=== PATIENT | female | born 1960 | race Caucasian/White ===

== ENCOUNTER 2019-04-10 08:57 | Emergency (ER) | payer MEDICARE ==
[~2019-04-10] VITALS: Ht 157.5 cm; Wt 47.7 kg
[2019-04-10 08:59] VITALS: Ht 157.5 cm; Wt 47.7 kg
[2019-04-10] MEDS ORDERED: AUBAGIO14 MG PO (09:01)
[2019-04-10] MEDS ORDERED: TYLENOL W/CODEI1 TAB PO (09:02)
[2019-04-10] MEDS ORDERED: FLOMAX0.4 MG PO (09:02)
[2019-04-10] MEDS ORDERED: TRAZODONE HCL150 MG PO (09:03)
[2019-04-10] MEDS ORDERED: ZOFRAN4 MG PO (09:03)
[2019-04-10] MEDS ORDERED: ZOLOFT25 MG PO (09:03)
[2019-04-10] MEDS ORDERED: BACLOFEN20 M1 PO (09:04)
[2019-04-10] MEDS ORDERED: ULTRAM50 MG PO (10:13)
[2019-04-10 11:15] VITALS: BP 146/87
== END 2019-04-10 11:15 | disposition home or self-care (01) ==
LOC: D.ER 08:57
DX: S89.91XA Unspecified injury of right lower leg, initial encounter (principal); X50.9XXA Other and unspecified overexertion or strenuous movements or postures, initial encounter; Y93.89 Activity, other specified; Y92.019 Unspecified place in single-family (private) house as the place of occurrence of the external cause; S00.93XA Contusion of unspecified part of head, initial encounter

== ENCOUNTER 2019-04-15 23:56 | Emergency (ER) | payer MEDICARE ==
[~2019-04-15 23:56] MED LIST: AUBAGIO14 MG PO; BACLOFEN20 M1 PO; FLOMAX0.4 MG PO; TRAZODONE HCL150 MG PO; TYLENOL W/CODEI1 TAB PO; ULTRAM50 MG PO; ZOFRAN4 MG PO; ZOLOFT25 MG PO
[2019-04-15 23:58] VITALS: BMI 19.2
[2019-04-16] MEDS ORDERED: TYLENOL W/CODEI1 TAB PO (01:18)
[2019-04-16 02:27] VITALS: BP 149/99
== END 2019-04-16 02:25 | disposition home or self-care (01) ==
LOC: D.ER 23:56
DX: S83.91XA Sprain of unspecified site of right knee, initial encounter (principal); X50.1XXA Overexertion from prolonged static or awkward postures, initial encounter; Y93.89 Activity, other specified; Y92.89 Other specified places as the place of occurrence of the external cause

== ENCOUNTER 2019-05-04 04:39 | Emergency (ER) | payer MEDICARE ==
[~2019-05-04] VITALS: Ht 157.5 cm; Wt 47.7 kg
[2019-05-04 04:40] VITALS: Ht 157.5 cm; Wt 47.7 kg
[2019-05-04] MEDS ORDERED: CYCLOBENZAPRINE10 MG PO (04:42)
[2019-05-04] MEDS ORDERED: LEVOXYL75 MCG PO (04:43)
[2019-05-04] MEDS ORDERED: AUGMENTIN 875-11 TAB PO (06:09)
[2019-05-04] MEDS ORDERED: TYLENOL W/CODEI1 TAB PO (06:25)
[2019-05-04 06:31] VITALS: BP 166/95
== END 2019-05-04 06:31 | disposition home or self-care (01) ==
LOC: D.ER 04:39
DX: S90.32XA Contusion of left foot, initial encounter (principal); X58.XXXA Exposure to other specified factors, initial encounter; Y93.89 Activity, other specified; Y92.89 Other specified places as the place of occurrence of the external cause

== ENCOUNTER 2020-02-14 22:07 | Emergency (ER) | payer MEDICARE ==
[~2020-02-14] VITALS: Ht 157.5 cm; Wt 51.4 kg
[~2020-02-14 22:07] MED LIST changes: +AUGMENTIN 875-11 TAB PO; +CYCLOBENZAPRINE10 MG PO; +GABAPENTIN100 MG PO; +IBUPROFEN800 MG PO; +LEVOXYL75 MCG PO; +LOMOTIL 2.5-0.1 EAC1 PO; +NORVASC5 MG PO; +OMNICEF300 MG PO; +VITAMIN D10000 UNI1 PO
[2020-02-14 22:11] VITALS: Ht 157.5 cm; Wt 51.4 kg
[2020-02-14] MEDS ORDERED: ZOFRAN ODT4 MG/UDTAB PO (22:57)
[2020-02-14] MEDS ORDERED: LOMOTIL 2.5-0.1 EAC1 PO (22:57)
[2020-02-15 00:57] VITALS: BP 140/71
== END 2020-02-15 01:14 | disposition home or self-care (01) ==
LOC: D.ER 22:07
DX: K52.9 Noninfective gastroenteritis and colitis, unspecified (principal); I10 Essential (primary) hypertension; E03.9 Hypothyroidism, unspecified; G35 Multiple sclerosis

== ENCOUNTER 2020-02-16 17:10 | Inpatient (IN) | payer MEDICARE ==
[~2020-02-16] VITALS: Ht 157.5 cm; Wt 51.3 kg
[~2020-02-16 17:10] MED LIST changes: +ZOFRAN ODT4 MG/UDTAB PO
[2020-02-16 17:43] LABS: BASOPHILS 0.2 % (0-2); EOSINOPHILS 1.7 % (0-7); HEMATOCRIT 40.8 % (36.0-48.0); HEMOGLOBIN 12.7 g/dL (12-16); IMMATURE GRANULOCYTES 0.2 % (0-5); LYMPHOCYTES 9.5 % (15-50); MCH 28.4 pg (26.0-34.0); MCHC 31.1 g/dL (31.0-37.0); MCV 91.3 fL (80.0-100.0); MEAN PLATELET VOLUME 9.2 fL (7.4-10.4); MONOCYTES 11.9 % (2-11); NEUTROPHILS 76.5 % (40-80); PLATELET COUNT 384 10x3/uL (130-400); RBC 4.47 10x6/uL (4.00-5.40); WBC 8.4 10x3/uL (4.8-10.8)
[2020-02-16 17:58] LABS: CALC OSMOLALITY 284 mosm/kg (275-300); CALCIUM 9.4 mg/dL (8.5-10.1); CARBON DIOXIDE 25.4 mmol/L (21.0-32.0); CHLORIDE - SERUM 101 mmol/L (98-107); CREATININE - SERUM 1.5 mg/dL (0.6-1.3); GLUCOSE 136 mg/dL (74-106); SODIUM 138 mmol/L (136-145); UREA NITROGEN 33 mg/dL (7-18); eGFR NON AFRICAN AMERICAN 38 mL/min (90-120)
[2020-02-16 18:06] LABS: ALBUMIN 3.1 g/dL (3.4-5.0); ALKALINE PHOSPHATASE 125 U/L (30-120); ALT (SGPT) 18 U/L (10-68); AMYLASE - SERUM 23 U/L (25-115); BILIRUBIN - TOTAL 0.33 mg/dL (0.2-1.3); LIPASE 131 U/L (73-393); PROTEIN - SERUM 7.8 g/dL (6.4-8.2)
[2020-02-16 18:10] LABS: TROPONIN-I < 0.017 ng/mL (0.000-0.060)
[2020-02-16 19:35] LABS: BILIRUBIN NEGATIVE (NEGATIVE); GLUCOSE NEGATIVE (NEGATIVE); KETONE NEGATIVE (NEGATIVE); NITRITE NEGATIVE (NEGATIVE); UROBILINOGEN NORMAL (NORMAL)
[2020-02-16 19:39] LABS: WHITE CELLS - URINE 25-50 /hpf (NEGATIVE)
[2020-02-16 19:40] LABS: BACTERIA MANY /hpf (NEGATIVE); EPITHELIAL CELLS 0-5 /hpf (0-5)
--- NOTE | 2020-02-16 20:14 | NUR ---
PT ARRIVED TO FLOOR VIA STRETCHER, TOTAL ASSIST TRANSFER TO BED. PT DENIES ANY PAIN AT THIS TIME. DOZIER CATH PLACED IN ER, CLAMPED. URINE NOTED TO BE DARK AND BLOODY. ER NURSE STATED THE DOCTORS ARE AWARE OF THIS. DOZIER WAS CLAMPED IN ER DUE TO OUTPUT OF 1000 ML WHEN DOZIER WAS INSERTED. CL IN REACH, BED IN LOWEST POSITION.
--- NOTE | 2020-02-16 21:30 | NUR ---
PT DOZIER CATH UNCLAMPED. CLOTS VISIBLE IN TUBE, AND NOT DRAINING. MARIE LAI APN PAGED AT THIS TIME.
--- NOTE | 2020-02-16 22:00 | NUR ---
MARIE LAI APN AT BEDSIDE WITH THIS NURSE. INSPECTION OF DOZIER CATH DONE AT THIS TIME. BLADDER SCAN DONE WITH 160 ML. DOZIER CATH WAS FLUSHED WITH 120 ML OF STERILE WATER. STILL HAVING DIFFICULTY GETTING CATH TO DRAIN. DOZIER BAG EMPTIED AND NO VISIBLE CLOTS NOTED IN TUBE. PER MARIE LAI APN THIS NURSE WITH RECHECK OUTPUT IN ONE HOUR AND NOTIFY MARIE LAI APN IF ANY CLOTS ARE NOTED AND WHAT THE OUTPUT IS. CL IN REACH, BED IN LOWEST POSITION.
[2020-02-17] VITALS: BP 159/77
--- NOTE | 2020-02-17 | NUR ---
PT OUTPUT 350ML, MARIE LAI APN NOTIFIED.
[2020-02-17 02:15] VITALS: BMI 20.7
[2020-02-17 04:00] VITALS: BP 103/51
--- NOTE | 2020-02-17 04:32 | NUR ---
PT C/O PAIN IN LEFT HIP DUE TO ONLY BEING COMFORTABLE LAYING ON HER LEFT SIDE. THIS NURSE APPLIED A PADDED MEPILEX TO LEFT HIP. NO SIGNS OF REDDNESS OR BREAK DOWN NOTED AT THIS TIME. CL IN REACH, BED IN LOWEST POSITION.
[2020-02-17 05:06] LABS: BASOPHILS 0.3 % (0-2); EOSINOPHILS 2.8 % (0-7); HEMATOCRIT 38.3 % (36.0-48.0); HEMOGLOBIN 11.8 g/dL (12-16); IMMATURE GRANULOCYTES 0.4 % (0-5); LYMPHOCYTES 14.1 % (15-50); MCHC 30.8 g/dL (31.0-37.0); MEAN PLATELET VOLUME 9.5 fL (7.4-10.4); MONOCYTES 13.3 % (2-11); NEUTROPHILS 69.1 % (40-80); PLATELET COUNT 423 10x3/uL (130-400); RBC 4.21 10x6/uL (4.00-5.40); RDW 14.1 % (11.5-14.5); WBC 7.5 10x3/uL (4.8-10.8)
[2020-02-17 05:36] LABS: APTT 45.1 SECONDS (22.8-39.4); INR 1.08 (0.85-1.17)
[2020-02-17 05:49] LABS: ALBUMIN 2.8 g/dL (3.4-5.0); ALKALINE PHOSPHATASE 112 U/L (30-120); BILIRUBIN - TOTAL 0.24 mg/dL (0.2-1.3); CALCIUM 8.9 mg/dL (8.5-10.1); CARBON DIOXIDE 24.6 mmol/L (21.0-32.0); CHLORIDE - SERUM 104 mmol/L (98-107); MAGNESIUM - SERUM 1.6 mg/dL (1.8-2.4); PHOSPHOROUS 2.3 mg/dL (2.5-4.9); SODIUM 139 mmol/L (136-145); THYROID STIMULATING HORMONE 6.99 uIU/mL (0.36-3.74)
[2020-02-17 05:50] LABS: ALT (SGPT) 13 U/L (10-68); CALC OSMOLALITY 278 mosm/kg (275-300); CREATININE - SERUM 0.7 mg/dL (0.6-1.3); GLUCOSE 84 mg/dL (74-106); POTASSIUM - SERUM 3.5 mmol/L (3.5-5.1); UREA NITROGEN 18 mg/dL (7-18); eGFR NON AFRICAN AMERICAN > 90 mL/min (90-120)
--- NOTE | 2020-02-17 07:04 | NUR ---
DOZIER OUTPUT TOTAL OF 1700 ML.
--- NOTE | 2020-02-17 07:26 | NUR ---
PT RESTING IN BED ALERT AND ORIENTED X4. DOZIER PATENT AT THIS TIME. PT DENIES ANY PAIN OR FURTHER NEEDS. NO S/S OF DISTRESS AT THIS TIME. BED LOW CALL LIGHT WITHIN REACH WILL CONTINUE TO MONITOR.
[2020-02-17 08:10] VITALS: BP 134/69
[2020-02-17 12:51] VITALS: Ht 157.5 cm; Wt 51.3 kg
[2020-02-17 14:01] VITALS: BP 98/73
--- NOTE | 2020-02-17 16:23 | NUR ---
RESTS IN BED WITH CALL LIGHT IN REACH. IV PATENT. WILL MONITOR NEEDS.
[2020-02-17 16:51] VITALS: BP 123/65
[2020-02-17 18:33] LABS: UDS - AMPHET NEGATIVE QUAL (NEGATIVE); UDS - BARB NEGATIVE QUAL (NEGATIVE); UDS - BENZO NEGATIVE QUAL (NEGATIVE); UDS - COCAINE NEGATIVE QUAL (NEGATIVE); UDS - OPIATE POSITIVE QUAL (NEGATIVE); UDS - PCP NEGATIVE QUAL (NEGATIVE); UDS - THC NEGATIVE QUAL (NEGATIVE)
--- NOTE | 2020-02-17 19:00 | NUR ---
REPORT RECEIVED, WILL CONTINUE POC. PATIENT IS AAOX4, LYING IN SEMI-FOWLERS POSITION. NO S/S OF DISTRESS OBSERVED, RR EVEN AND UNLABORED ON ROOM AIR. PIV TO RT AC INFUSING NS @ 75ML/HR. F/C DRAINING PINK TINGED URINE BY GRAVITY TO RT SIDE OF BED. PATIENT DENIES NEEDS AT THIS TIME. CL IN REACH, BED LOCKED AND LOWERED. WILL CTM.
[2020-02-17 20:00] VITALS: BP 120/81
--- NOTE | 2020-02-17 20:56 | NUR ---
ADMINISTERED HS MEDS, FSBS 85 NO INSULIN NEEDED. EMPTIED 400CC DARK RED URINE FROM DOZIER CATHETER.
--- NOTE | 2020-02-17 22:11 | NUR ---
PATIENT NEEDED ASSISTANCE BEING REPOSITIONED. REPOSITIONED PATIENT AND NOTICED SHE HAD A BM. ARTIFICIAL BREEDING DISTRIBUTOR AT BEDSIDE TO HELP CLEAN UP.
--- NOTE | 2020-02-17 23:13 | NUR ---
PT C/O PAIN IN LEGS AND RT KNEE. ADMINISTERED PRN ZOFRAN AND MORPHINE PER ORDER. WILL CTM.
[2020-02-18] VITALS: BP 143/64
--- NOTE | 2020-02-18 01:00 | NUR ---
EMPTIED 125CC NIMCO COLORED URINE FROM F/C. REPOSITIONED PATIENT. PATIENT DENIES FURTHER NEEDS AT THIS TIME. CL IN REACH, BED LOCKED AND LOWERED. WILL CTM.
--- NOTE | 2020-02-18 02:56 | NUR ---
I have reviewed this patient and I concur with the Shift Assessment completed by the Licensed Practical Nurse today this shift.
[2020-02-18 04:00] VITALS: BP 141/68
[2020-02-18 04:34] LABS: BASOPHILS 0.3 % (0-2); EOSINOPHILS 5.2 % (0-7); HEMATOCRIT 32.8 % (36.0-48.0); HEMOGLOBIN 9.9 g/dL (12-16); IMMATURE GRANULOCYTES 0.3 % (0-5); LYMPHOCYTES 22.3 % (15-50); MCH 27.7 pg (26.0-34.0); MCHC 30.2 g/dL (31.0-37.0); MCV 91.6 fL (80.0-100.0); MEAN PLATELET VOLUME 9.5 fL (7.4-10.4); MONOCYTES 12.6 % (2-11); NEUTROPHILS 59.3 % (40-80); PLATELET COUNT 362 10x3/uL (130-400); RBC 3.58 10x6/uL (4.00-5.40); WBC 6.5 10x3/uL (4.8-10.8)
[2020-02-18 05:08] LABS: CALCIUM 7.7 mg/dL (8.5-10.1); CARBON DIOXIDE 25.1 mmol/L (21.0-32.0); CHLORIDE - SERUM 108 mmol/L (98-107); CREATININE - SERUM 0.6 mg/dL (0.6-1.3); GLUCOSE 88 mg/dL (74-106); SODIUM 142 mmol/L (136-145); eGFR NON AFRICAN AMERICAN > 90 mL/min (90-120)
[2020-02-18 05:10] LABS: CALC OSMOLALITY 279 mosm/kg (275-300); POTASSIUM - SERUM 2.9 mmol/L (3.5-5.1); UREA NITROGEN 8 mg/dL (7-18)
--- NOTE | 2020-02-18 05:49 | NUR ---
ADMINISTERED AM MEDS. REPLACED LOW POTASSIUM PER PROTOCOL.
[2020-02-18 09:05] VITALS: BP 142/82
[2020-02-18 12:59] VITALS: BP 122/62
[2020-02-18 17:44] VITALS: BP 147/69
--- NOTE | 2020-02-18 19:02 | MORECARE ---
CASE MANAGEMENT DISCHARGE SUMMARY PATIENT: MARIOLA FORTE UNIT: [id number] ADM DATE: 02/16/20 AGE: 59 : 64 SEX: F ROOM/BED: D.2071 AUTHOR: HAWK,DOC PHYSICIAN: REFERRING PHYSICIAN: ANGELIQUE SLATER MD DATE OF SERVICE: 02/18/20 Discharge Plan Patient Name: MARIOLA FORET Facility: [facility]:[place] : 1960 Planned Disposition: Home with Home Health Anticipated Discharge Date: Discharge Date: Expected LOS: Initial Reviewer: [email or web address] Initial Review Date: 02/16/2020 Generated: 02/18/20 8:01 pm Comments DCP- Discharge Planning Updated by [id number]: Aniya Latham on 02/18/20 5:[address] Patient Name: MARIOLA FORTE Admission Status: ER Accout number: [id number] Admission Date: 02-16-2020 : 1960 Admission Diagnosis:NAUSEA WITH VOMITING, UNSPECIFIED Attending: ANGELIQUE SLATER Current LOS: 2 Anticipated DC Date: Planned Disposition: Primary Insurance: [employer] CHOICE PPO M[employer] Discharge Planning Comments: CM spoke with patient to complete initial dc planning assessment. CM educated patient on the CM role and verbal consent given by patient to complete assessment. Patient lives at home with her brother and his friend where she is total care. At discharge plans to return home with home health care. CM discussed availability of home health, rehab services, and medical equipment. Patient states that she has contacted Francisco Javier Puente [phone] with [facility]. Patient states that her brother has Asperger's and doesn't believe that she needs help therefore he has stopped helping her at all. Patient states that he does prepare her meals. Patient states that she wears adult diapers but he has doesn't want to change her. Patient states that she can't move her legs at all. Patient states that she will try to get someone to transport her home but her last admission she had to have ambulance to take her home. CM discussed senior living facility for her care. Patient stated that she was at [facility] and doesn't want to go back. CM called Francisco Javier Puente and found out that he is with [facility] [phone]. [facility] is pending her admit on Friday JULIETA signed for [facility] and declination signed for senior living care. Patient is wanting to stay in hospital until Friday. Patient states she is afraid to go home prior to Friday since HH will not be out there. Patient states that she has meds to last picker at her pharmacy but has no transportation to pick them up. CM explained that it was up to physician to make the call as to when she can be discharged. D/C IMM signed and copy left with patient. If patient isn't being cared for at home and is total care then CM doesn't know if HH is enough for safe discharge. Patient has declined SNF placement and signed declination. CM will continue to follow and will assist as needed with dc plans/needs. Threshing Machine Operator: Aniya Latham DCPIA - Discharge Planning Initial Assessment Updated by [email or web address]: Aniya Latham on 02/18/20 6:19 pm * Is the patient Alert and Oriented? Yes * How many steps to enter\exit or inside your home? ramp * PCP NO PCP - goes to [facility] * [facility] * Preadmission Environment Home with Family * ADLs Total Dependent * Equipment Wheelchair * List name and contact numbers for known caregivers / representatives who currently or will assist patient after discharge: ANTHONY SOLANOER - [phone] * Verbal permission to speak to the caregivers and representatives has been obtained from the patient. Yes * Community resources currently utilized None * Additional services required to return to the preadmission environment? No * Can the patient safely return to the preadmission environment? Yes * Has this patient been hospitalized within the prior 30 days at any hospital? No Coverage Notice Reviewer: [id number] - Aniya Latham Notice Issued Date-Time: 02/18/2020 16:00 Notice Type: IM Discharge Notice Notice Delivered To: Patient Relationship to Patient: Self Chief Credit Officer Name: Delivery Method: HAND - Hand Delivered Sammie Days: Prior Verbal Notification: Recipient Understood Notice: Yes Recipient Signature: Yes Med Rec Note Co-signed by Attending: Coverage Notice Comment: Patient Name: MARIOLA FORTE Page [id number] at 1902 All edits/amendments must be made on the electronic document DICTATION DATE: 02/18/201900 MERCHANDISE COORDINATOR: GARCIA 02/18/201900 RPT#: [id number] DC DATE: STATUS: ADM IN [facility] [address] [place] [address] END OF REPORT
--- NOTE | 2020-02-18 19:20 | NUR ---
BEDSIDE REPORT RECEIVED, PT CARE ASSUMED. INTRODUCED SELF AND WROTE NAME ON BOARD. PT SITTING UP IN BED, WATCHING TV, AAOX4. SMALL AMOUNT OF BROWN BM NOTED, PT CLEANED, LINENS CHANGED, REPOSITIONED FOR COMFORT. DENIES ANY OTHER NEEDS AT THIS TIME. BED IN LOWEST POSITION, SR X2, CALL LIGHT AND CELLPHONE WITHIN REACH. WILL CONTINUE TO MONITOR.
[2020-02-18 22:37] VITALS: BP 171/90
[2020-02-19 00:40] VITALS: BP 153/82
[2020-02-19 05:02] LABS: BASOPHILS 0.2 % (0-2); EOSINOPHILS 5.3 % (0-7); HEMATOCRIT 36.9 % (36.0-48.0); HEMOGLOBIN 11.3 g/dL (12-16); IMMATURE GRANULOCYTES 0.4 % (0-5); LYMPHOCYTES 14.3 % (15-50); MCH 27.8 pg (26.0-34.0); MCHC 30.6 g/dL (31.0-37.0); MCV 90.9 fL (80.0-100.0); MEAN PLATELET VOLUME 9.3 fL (7.4-10.4); MONOCYTES 9.4 % (2-11); NEUTROPHILS 70.4 % (40-80); PLATELET COUNT 378 10x3/uL (130-400); RBC 4.06 10x6/uL (4.00-5.40); RDW 13.8 % (11.5-14.5)
[2020-02-19 05:03] LABS: WBC 8.5 10x3/uL (4.8-10.8)
[2020-02-19 05:21] LABS: CALC OSMOLALITY 274 mosm/kg (275-300); CALCIUM 8.6 mg/dL (8.5-10.1); CARBON DIOXIDE 25.4 mmol/L (21.0-32.0); CHLORIDE - SERUM 104 mmol/L (98-107); CREATININE - SERUM 0.6 mg/dL (0.6-1.3); GLUCOSE 99 mg/dL (74-106); POTASSIUM - SERUM 3.5 mmol/L (3.5-5.1); SODIUM 139 mmol/L (136-145); UREA NITROGEN 4 mg/dL (7-18); eGFR NON AFRICAN AMERICAN > 90 mL/min (90-120)
--- NOTE | 2020-02-19 07:00 | NUR ---
PT AWAKE ALERT AND ORIENTED, LYING IN BED. C/O OF 10/10 GENERALIZED PAIN. WILL ADMINISTER PAIN MEDS PER MD ORDER. CL IN REACH, SRX2. ALL QUESTIONS ANSWERED TO THE BEST OF MY ABILITY. POSITIONED CROSS LEGGED FOR BREAKFAST, CHANGED FROM BOWEL MOVEMENT.
[2020-02-19 08:07] VITALS: BP 159/83
[2020-02-19] MEDS ORDERED: FLOMAX0.4 MG PO (09:58)
--- NOTE | 2020-02-19 10:39 | NUR ---
INFORMED PT SHE WOULD BE DISCHARGING. SHE WAS AMICABLE BUT EXPRESSED CONCERNS OVER GETTING HOME, STATES THAT THE LAST TIME SHE WAS HERE SHE WAS SENT HOME VIA AMBULANCE. INFORMED FRONT OFFICE MANAGER.
--- NOTE | 2020-02-19 10:53 | MORECARE ---
CASE MANAGEMENT DISCHARGE SUMMARY PATIENT: MARIOLA FORTE UNIT: [id number] ADM DATE: 02/16/20 AGE: 59 : 64 SEX: F ROOM/BED: D.2106 AUTHOR: NIGHAT ARECHIGA PHYSICIAN: REFERRING PHYSICIAN: ANGELIQUE SLATER MD DATE OF SERVICE: 02/19/20 Discharge Plan Patient Name: MARIOLA FORTE Facility: [facility]:[place] : 1960 Planned Disposition: Home with Home Health Anticipated Discharge Date: Discharge Date: Expected LOS: Initial Reviewer: [email or web address] Initial Review Date: 02/16/2020 Generated: 02/19/20 11:52 am Comments DCP- Discharge Planning Updated by [email or web address]: Kiera Hewitt on 02/19/20 9:[address] Spoke with patient at length about discharging home today. She stated that she has already spoken with Bill from [facility] and he was going to go come to her home today. She was also going to have him machine operator picker her medications for her. She will need to be discharged home via EMS. I will let [facility] know that she is discharging today. Patient stated that she felt safe going home today and denies any needs. I told her that some pharmacies will deliver like [facility], she said she would look into that. CM will let [facility] know of discharge DCP- Discharge Planning Updated by [id number]: Aniya Latham on 02/18/20 5:[address] Patient Name: MARIOLA FORTE Admission Status: ER Accout number: [id number] Admission Date: 02-16-2020 : 1960 Admission Diagnosis:NAUSEA WITH VOMITING, UNSPECIFIED Attending: ANGELIQUE SLATER Current LOS: 2 Anticipated DC Date: Planned Disposition: Primary Insurance: [employer] CHOICE PPO MCR [facility] Discharge Planning Comments: CM spoke with patient to complete initial dc planning assessment. CM educated patient on the CM role and verbal consent given by patient to complete assessment. Patient lives at home with her brother and his friend where she is total care. At discharge plans to return home with home health care. CM discussed availability of home health, rehab services, and medical equipment. Patient states that she has contacted Francisco Javier Puente [phone] with [facility]. Patient states that her brother has Asperger's and doesn't believe that she needs help therefore he has stopped helping her at all. Patient states that he does prepare her meals. Patient states that she wears adult diapers but he has doesn't want to change her. Patient states that she can't move her legs at all. Patient states that she will try to get someone to transport her home but her last admission she had to have ambulance to take her home. CM discussed alf facility for her care. Patient stated that she was at [facility] and doesn't want to go back. CM called Francisco Javier Puente and found out that he is with [facility] [phone]. [facility] is pending her admit on Friday JULIETA signed for [facility] and declination signed for alf care. Patient is wanting to stay in hospital until Friday. Patient states she is afraid to go home prior to Friday since HH will not be out there. Patient states that she has meds to machine operator picker at her pharmacy but has no transportation to pick them up. CM explained that it was up to physician to make the call as to when she can be discharged. D/C IMM signed and copy left with patient. If patient isn't being cared for at home and is total care then CM doesn't know if HH is enough for safe discharge. Patient has declined SNF placement and signed declination. CM will continue to follow and will assist as needed with dc plans/needs. Smooth And Burr Worker Composites: Aniya Latham DCPIA - Discharge Planning Initial Assessment Updated by [id number]: Aniya Latham on 02/18/20 6:19 pm * Is the patient Alert and Oriented? Yes * How many steps to enter\exit or inside your home? ramp * PCP NO PCP - goes to [facility] * [facility]acy [facility] * Preadmission Environment Home with Family * ADLs Total Dependent * Equipment Wheelchair * List name and contact numbers for known caregivers / representatives who currently or will assist patient after discharge: ANTHONY ZARAGOZA - BROTHER - [phone] * Verbal permission to speak to the caregivers and representatives has been obtained from the patient. Yes * Community resources currently utilized None * Additional services required to return to the preadmission environment? No * Can the patient safely return to the preadmission environment? Yes * Has this patient been hospitalized within the prior 30 days at any hospital? No Coverage Notice Reviewer: [email or web address] Ling Latham Notice Issued Date-Time: 02/18/2020 16:00 Notice Type: IM Discharge Notice Notice Delivered To: Patient Relationship to Patient: Self Canoe Inspector Final Name: Delivery Method: HAND - Hand Delivered Sammie Days: Prior Verbal Notification: Recipient Understood Notice: Yes Recipient Signature: Yes Med Rec Note Co-signed by Attending: Coverage Notice Comment: Last DP export: 02/18/20 6:02 p Patient Name: MARIOLA FORTE Page 32983 at 1053 All edits/amendments must be made on the electronic document DICTATION DATE: 02/19/201051 TIMBER GRADER: GARCIA 02/19/20 105 RPT#: [id number] DC DATE: STATUS: ADM IN [facility] [address] [place] [address] END OF REPORT
--- NOTE | 2020-02-19 11:00 | MORECARE ---
CASE MANAGEMENT DISCHARGE SUMMARY PATIENT: MARIOLA FORTE UNIT: [id number] ADM DATE: 02/16/20 AGE: 59 : 64 SEX: F ROOM/BED: D.2106 AUTHOR: NIGHAT ARECHIGA PHYSICIAN: REFERRING PHYSICIAN: ANGELIQUE SLATER MD DATE OF SERVICE: 02/19/20 Discharge Plan Patient Name: MARIOLA FORTE Facility: [facility]:[place] : 1960 Planned Disposition: Home with Home Health Anticipated Discharge Date: Discharge Date: Expected LOS: Initial Reviewer: [email or web address] Initial Review Date: 02/16/2020 Generated: 02/19/20 11:59 am Comments DCP- Discharge Planning Updated by [id number]: Kiera Hewitt on 02/19/20 9:[address] Spoke with patient at length about discharging home today. She stated that she has already spoken with Bill from [facility] and he was going to go come to her home today. She was also going to have him cherry picker operator her medications for her. She will need to be discharged home via EMS. I will let [facility] know that she is discharging today. Patient stated that she felt safe going home today and denies any needs. I told her that some pharmacies will deliver like [facility], she said she would look into that. CM will let [facility] know of discharge DCP- Discharge Planning Updated by [id number]: Aniya Latham on 02/18/20 5:[address] Patient Name: MARIOLA FORTE Admission Status: ER Accout number: [id number] Admission Date: 02-16-2020 : 1960 Admission Diagnosis:NAUSEA WITH VOMITING, UNSPECIFIED Attending: ANGELIQUE SLATER Current LOS: 2 Anticipated DC Date: Planned Disposition: Primary Insurance: [employer] CHOICE PPO MCR [facility] Discharge Planning Comments: CM spoke with patient to complete initial dc planning assessment. CM educated patient on the CM role and verbal consent given by patient to complete assessment. Patient lives at home with her brother and his friend where she is total care. At discharge plans to return home with home health care. CM discussed availability of home health, rehab services, and medical equipment. Patient states that she has contacted Francisco Javier Puente [phone] with [facility]. Patient states that her brother has Asperger's and doesn't believe that she needs help therefore he has stopped helping her at all. Patient states that he does prepare her meals. Patient states that she wears adult diapers but he has doesn't want to change her. Patient states that she can't move her legs at all. Patient states that she will try to get someone to transport her home but her last admission she had to have ambulance to take her home. CM discussed [facility] facility for her care. Patient stated that she was at [facility] and doesn't want to go back. CM called Francisco Javier Puente and found out that he is with [facility] [phone]. [facility] is pending her admit on Friday JULIETA signed for [facility] and declination signed for [facility]. Patient is wanting to stay in hospital until Friday. Patient states she is afraid to go home prior to Friday since HH will not be out there. Patient states that she has meds to cherry picker operator at her pharmacy but has no transportation to pick them up. CM explained that it was up to physician to make the call as to when she can be discharged. D/C IMM signed and copy left with patient. If patient isn't being cared for at home and is total care then CM doesn't know if HH is enough for safe discharge. Patient has declined SNF placement and signed declination. CM will continue to follow and will assist as needed with dc plans/needs. Machine Clothing Replacer: Aniya Latham DCPIA - Discharge Planning Initial Assessment Updated by [email or web address]: Aniya Latham on 02/18/20 6:19 pm * Is the patient Alert and Oriented? Yes * How many steps to enter\exit or inside your home? ramp * PCP NO PCP - goes to [facility] * [facility]acy [facility] * Preadmission Environment Home with Family * ADLs Total Dependent * Equipment Wheelchair * List name and contact numbers for known caregivers / representatives who currently or will assist patient after discharge: ANTHONY ZARAGOZA - BROTHER - [phone] * Verbal permission to speak to the caregivers and representatives has been obtained from the patient. Yes * Community resources currently utilized None * Additional services required to return to the preadmission environment? No * Can the patient safely return to the preadmission environment? Yes * Has this patient been hospitalized within the prior 30 days at any hospital? No External [facility]iders [facility] Next Contact Date: Service Request Date: Service Type: Resolution: Reviewer: Comments: Coverage Notice Reviewer: [id number] - Aniya Latham Notice Issued Date-Time: 02/18/2020 16:00 Notice Type: IM Discharge Notice Notice Delivered To: Patient Relationship to Patient: Self Computer Support Technician Name: Delivery Method: HAND - Hand Delivered Sammie Days: Prior Verbal Notification: Recipient Understood Notice: Yes Recipient Signature: Yes Med Rec Note Co-signed by Attending: Coverage Notice Comment: Last DP export: 02/19/20 9:53 a Patient Name: MARIOLA FORTE Page [id number] at 1100 All edits/amendments must be made on the electronic document DICTATION DATE: 02/19/201058 CLAIMS TECHNICIAN: GARCIA 02/19/20 105 RPT#: [id number] DC DATE: STATUS: ADM IN [facility] [address] [place] [address] END OF REPORT
--- NOTE | 2020-02-19 11:06 | MORECARE ---
CASE MANAGEMENT DISCHARGE SUMMARY PATIENT: MARIOLA FORTE UNIT: [id number] ADM DATE: 02/16/20 AGE: 59 : 64 SEX: F ROOM/BED: D.2106 AUTHOR: HAWK,DOC PHYSICIAN: REFERRING PHYSICIAN: ANGELIQUE SLATER MD DATE OF SERVICE: 02/19/20 Discharge Plan Patient Name: MARIOLA FORTE Facility: [facility]:[place] : 1960 Planned Disposition: Home with Home Health Anticipated Discharge Date: Discharge Date: Expected LOS: Initial Reviewer: [id number] Initial Review Date: 02/16/2020 Generated: 02/19/20 12:06 pm Comments DCP- Discharge Planning Updated by [email or web address]: Kiera Hewitt on 02/19/20 10:[address] Spoke with Verito at [facility] to let her know that the patient was discharging home today. DCP- Discharge Planning Updated by [email or web address]: Kiera Hewitt on 02/19/20 9:[address] Spoke with patient at length about discharging home today. She stated that she has already spoken with Bill from [facility] and he was going to go come to her home today. She was also going to have him garbage pick up worker her medications for her. She will need to be discharged home via EMS. I will let [facility] know that she is discharging today. Patient stated that she felt safe going home today and denies any needs. I told her that some pharmacies will deliver like [facility], she said she would look into that. CM will let [facility] know of discharge DCP- Discharge Planning Updated by [email or web address]: Aniya Latham on 02/18/20 5:[address] Patient Name: MARIOLA FORTE Admission Status: ER Accout number: [id number] Admission Date: 02-16-2020 : 1960 Admission Diagnosis:NAUSEA WITH VOMITING, UNSPECIFIED Attending: ANGELIQUE SLATER Current LOS: 2 Anticipated DC Date: Planned Disposition: Primary Insurance: [employer] CHOICE PPO MCR ADVANT Discharge Planning Comments: CM spoke with patient to complete initial dc planning assessment. CM educated patient on the CM role and verbal consent given by patient to complete assessment. Patient lives at home with her brother and his friend where she is total care. At discharge plans to return home with home health care. CM discussed availability of home health, rehab services, and medical equipment. Patient states that she has contacted Francisco Javier Puente [phone] with [facility]. Patient states that her brother has Asperger's and doesn't believe that she needs help therefore he has stopped helping her at all. Patient states that he does prepare her meals. Patient states that she wears adult diapers but he has doesn't want to change her. Patient states that she can't move her legs at all. Patient states that she will try to get someone to transport her home but her last admission she had to have ambulance to take her home. CM discussed shelter facility for her care. Patient stated that she was at [facility] and doesn't want to go back. CM called Francisco Javier Puente and found out that he is with [facility] [phone]. [facility] is pending her admit on Friday JULIETA signed for [facility] and declination signed for shelter care. Patient is wanting to stay in hospital until Friday. Patient states she is afraid to go home prior to Friday since HH will not be out there. Patient states that she has meds to garbage pick up worker at her pharmacy but has no transportation to pick them up. CM explained that it was up to physician to make the call as to when she can be discharged. D/C IMM signed and copy left with patient. If patient isn't being cared for at home and is total care then CM doesn't know if HH is enough for safe discharge. Patient has declined SNF placement and signed declination. CM will continue to follow and will assist as needed with dc plans/needs. Rubber Cutter And Shape Carver: Aniya Latham DCPIA - Discharge Planning Initial Assessment Updated by [email or web address]: Aniya Latham on 02/18/20 6:19 pm * Is the patient Alert and Oriented? Yes * How many steps to enter\exit or inside your home? ramp * PCP NO PCP - goes to [facility] * [facility] * Preadmission Environment Home with Family * ADLs Total Dependent * Equipment Wheelchair * List name and contact numbers for known caregivers / representatives who currently or will assist patient after discharge: ANTHONY NIK EISENBERG - [phone] * Verbal permission to speak to the caregivers and representatives has been obtained from the patient. Yes * Community resources currently utilized None * Additional services required to return to the preadmission environment? No * Can the patient safely return to the preadmission environment? Yes * Has this patient been hospitalized within the prior 30 days at any hospital? No Coverage Notice Reviewer: [email or web address] Ling Latham Notice Issued Date-Time: 02/18/2020 16:00 Notice Type: IM Discharge Notice Notice Delivered To: Patient Relationship to Patient: Self Pipe Finishing Supervisor Name: Delivery Method: HAND - Hand Delivered Sammie Days: Prior Verbal Notification: Recipient Understood Notice: Yes Recipient Signature: Yes Med Rec Note Co-signed by Attending: Coverage Notice Comment: Last DP export: 02/19/20 10:00 a Patient Name: MARIOLA FORTE Page 83049 at 1106 All edits/amendments must be made on the electronic document DICTATION DATE: 02/19/201105 SPINE NURSE: GARCIA 02/19/20 1106 RPT#: [id number] DC DATE: STATUS: ADM IN [facility] [address] [place] [address] END OF REPORT
--- NOTE | 2020-02-19 12:02 | NUR ---
SPOKE WITH [facility], ETA 30 MINUTES. PT IS CURRENTLY EATING, I/V OUT TIP INTACT. CL IN REACH, SRX2
--- NOTE | 2020-02-19 13:23 | NUR ---
PT ESCORTED OUT VIA AMBULANCE.
--- NOTE | 2020-02-20 16:20 | MORECARE ---
CASE MANAGEMENT DISCHARGE SUMMARY PATIENT: MARIOLA FORTE UNIT: [id number] ADM DATE: 02/16/20 AGE: 59 : 64 SEX: F ROOM/BED: D.2106 AUTHOR: HAWK,DOC PHYSICIAN: REFERRING PHYSICIAN: ANGELIQUE SLATER MD DATE OF SERVICE: 02/20/20 Discharge Plan Patient Name: MARIOLA FORTE Facility: [facility]:[place] : 1960 Planned Disposition: Home with Home Health Anticipated Discharge Date: Discharge Date: 02/19/2020 Expected LOS: 0 Initial Reviewer: [email or web address] Initial Review Date: 02/16/2020 Generated: 02/20/20 5:19 pm Comments DCP- Discharge Planning Updated by [email or web address]: Kiera Hewitt on 02/19/20 10:[address] Spoke with Verito at [facility] to let her know that the patient was discharging home today. DCP- Discharge Planning Updated by [id number]: Kiera Hewitt on 02/19/20 9:[address] Spoke with patient at length about discharging home today. She stated that she has already spoken with Bill from [facility] and he was going to go come to her home today. She was also going to have him product picker her medications for her. She will need to be discharged home via EMS. I will let [facility] know that she is discharging today. Patient stated that she felt safe going home today and denies any needs. I told her that some pharmacies will deliver like [facility], she said she would look into that. CM will let [facility] know of discharge DCP- Discharge Planning Updated by [id number]: Aniya Latham on 02/18/20 5:[address] Patient Name: MARIOLA FORTE Admission Status: ER Accout number: [id number] Admission Date: 02-16-2020 : 1960 Admission Diagnosis:NAUSEA WITH VOMITING, UNSPECIFIED Attending: ANGELIQUE SLATER Current LOS: 2 Anticipated DC Date: Planned Disposition: Primary Insurance: [employer] CHOICE PPO MCR ADVANT Discharge Planning Comments: CM spoke with patient to complete initial dc planning assessment. CM educated patient on the CM role and verbal consent given by patient to complete assessment. Patient lives at home with her brother and his friend where she is total care. At discharge plans to return home with home health care. CM discussed availability of home health, rehab services, and medical equipment. Patient states that she has contacted Francisco Javier Puente [phone] with [facility]. Patient states that her brother has Asperger's and doesn't believe that she needs help therefore he has stopped helping her at all. Patient states that he does prepare her meals. Patient states that she wears adult diapers but he has doesn't want to change her. Patient states that she can't move her legs at all. Patient states that she will try to get someone to transport her home but her last admission she had to have ambulance to take her home. CM discussed longterm facility for her care. Patient stated that she was at [facility] and doesn't want to go back. CM called Francisco Javier Puente and found out that he is with [facility] [phone]. [facility] is pending her admit on Friday JULIETA signed for [facility] and declination signed for longterm care. Patient is wanting to stay in hospital until Friday. Patient states she is afraid to go home prior to Friday since HH will not be out there. Patient states that she has meds to product picker at her pharmacy but has no transportation to pick them up. CM explained that it was up to physician to make the call as to when she can be discharged. D/C IMM signed and copy left with patient. If patient isn't being cared for at home and is total care then CM doesn't know if HH is enough for safe discharge. Patient has declined SNF placement and signed declination. CM will continue to follow and will assist as needed with dc plans/needs. Genetics Teacher: Aniya Latham DCPIA - Discharge Planning Initial Assessment Updated by [email or web address]: Aniya Latham on 02/18/20 6:19 pm * Is the patient Alert and Oriented? Yes * How many steps to enter\exit or inside your home? ramp * PCP NO PCP - goes to [facility] * [facility] * Preadmission Environment Home with Family * ADLs Total Dependent * Equipment Wheelchair * List name and contact numbers for known caregivers / representatives who currently or will assist patient after discharge: ANTHONY EISENBERG - [phone] * Verbal permission to speak to the caregivers and representatives has been obtained from the patient. Yes * Community resources currently utilized None * Additional services required to return to the preadmission environment? No * Can the patient safely return to the preadmission environment? Yes * Has this patient been hospitalized within the prior 30 days at any hospital? No Coverage Notice Reviewer: [id number] Ling Latham Notice Issued Date-Time: 02/18/2020 16:00 Notice Type: IM Discharge Notice Notice Delivered To: Patient Relationship to Patient: Self Airport Duty Manager Name: Delivery Method: HAND - Hand Delivered Sammie Days: Prior Verbal Notification: Recipient Understood Notice: Yes Recipient Signature: Yes Med Rec Note Co-signed by Attending: Coverage Notice Comment: Last DP export: 02/19/20 10:06 a Patient Name: MARIOLA FORTE Page 54563 at 1620 All edits/amendments must be made on the electronic document DICTATION DATE: 02/20/201618 SORTER PRICER: GARCIA 02/20/20 161 RPT#: [id number] DC DATE:02/19/20 STATUS: DIS IN [facility] [address] [place] [address] END OF REPORT
--- NOTE | 2020-02-21 10:12 | MORECARE ---
CASE MANAGEMENT DISCHARGE SUMMARY PATIENT: MARIOLA FORTE UNIT: [id number] ADM DATE: 02/16/20 AGE: 59 : 64 SEX: F ROOM/BED: D.2106 AUTHOR: HAWK,DOC PHYSICIAN: REFERRING PHYSICIAN: ANGELIQUE SLATER MD DATE OF SERVICE: 02/21/20 Discharge Plan Patient Name: MARIOLA FORTE Facility: [facility]:[place] : 1960 Planned Disposition: Home with Home Health Anticipated Discharge Date: Discharge Date: 02/19/2020 Expected LOS: 0 Initial Reviewer: [email or web address] Initial Review Date: 02/16/2020 Generated: 02/21/20 11:11 am Comments DCP- Discharge Planning Updated by [email or web address]: Raquel Carrillo on 02/21/20 9:[address] I spoke with APS, Mr. Menchaca, and informed him of patient's discharge on Friday. DCP- Discharge Planning Updated by [id number]: Kiera Hewitt on 02/19/20 10:[address] Spoke with Verito at [facility] to let her know that the patient was discharging home today. DCP- Discharge Planning Updated by [email or web address]: Kiera Hewitt on 02/19/20 9:[address] Spoke with patient at length about discharging home today. She stated that she has already spoken with Bill from [facility] and he was going to go come to her home today. She was also going to have him pick and shovel man her medications for her. She will need to be discharged home via EMS. I will let [facility] know that she is discharging today. Patient stated that she felt safe going home today and denies any needs. I told her that some pharmacies will deliver like [facility], she said she would look into that. will let [facility] know of discharge DCP- Discharge Planning Updated by [id number]: Aniya Latham on 02/18/20 5:[address] Patient Name: MARIOLA FORTE Admission Status: ER Accout number: [id number] Admission Date: 02-16-2020 : 1960 Admission Diagnosis:NAUSEA WITH VOMITING, UNSPECIFIED Attending: ANGELIQUE SLATER Current LOS: 2 Anticipated DC Date: Planned Disposition: Primary Insurance: [employer] CHOICE PPO MCR ADVANT Discharge Planning Comments: CM spoke with patient to complete initial dc planning assessment. CM educated patient on the CM role and verbal consent given by patient to complete assessment. Patient lives at home with her brother and his friend where she is total care. At discharge plans to return home with home health care. CM discussed availability of home health, rehab services, and medical equipment. Patient states that she has contacted Francisco Javier Puente [phone] with [facility]. Patient states that her brother has Asperger's and doesn't believe that she needs help therefore he has stopped helping her at all. Patient states that he does prepare her meals. Patient states that she wears adult diapers but he has doesn't want to change her. Patient states that she can't move her legs at all. Patient states that she will try to get someone to transport her home but her last admission she had to have ambulance to take her home. CM discussed prison facility for her care. Patient stated that she was at [facility] and doesn't want to go back. CM called Francisco Javier Puente and found out that he is with [facility] [phone]. [facility] is pending her admit on Friday JULIETA signed for [facility] and declination signed for prison care. Patient is wanting to stay in hospital until Friday. Patient states she is afraid to go home prior to Friday since HH will not be out there. Patient states that she has meds to pick and shovel man at her pharmacy but has no transportation to pick them up. CM explained that it was up to physician to make the call as to when she can be discharged. D/C IMM signed and copy left with patient. If patient isn't being cared for at home and is total care then CM doesn't know if HH is enough for safe discharge. Patient has declined SNF placement and signed declination. CM will continue to follow and will assist as needed with dc plans/needs. Singe Winder: Aniya Latham DCPIA - Discharge Planning Initial Assessment Updated by [email or web address]: Aniya Latham on 02/18/20 6:19 pm * Is the patient Alert and Oriented? Yes * How many steps to enter\exit or inside your home? ramp * PCP NO PCP - goes to [facility] * [facility]acy [facility] * Preadmission Environment Home with Family * ADLs Total Dependent * Equipment Wheelchair * List name and contact numbers for known caregivers / representatives who currently or will assist patient after discharge: ANTHONY EISENBERG - [phone] * Verbal permission to speak to the caregivers and representatives has been obtained from the patient. Yes * Community resources currently utilized None * Additional services required to return to the preadmission environment? No * Can the patient safely return to the preadmission environment? Yes * Has this patient been hospitalized within the prior 30 days at any hospital? No Coverage Notice Reviewer: [id number] Ling Latham Notice Issued Date-Time: 02/18/2020 16:00 Notice Type: IM Discharge Notice Notice Delivered To: Patient Relationship to Patient: Self Yard Truck Driver Name: Delivery Method: HAND - Hand Delivered Sammie Days: Prior Verbal Notification: Recipient Understood Notice: Yes Recipient Signature: Yes Med Rec Note Co-signed by Attending: Coverage Notice Comment: Last DP export: 02/20/20 3:20 p Patient Name: MARIOLA FORTE Page 88318 at 1012 All edits/amendments must be made on the electronic document DICTATION DATE: 02/21/20 1011 SYSTEMS SPEC: GARCIA 02/21/20 1011 RPT#: [id number] DC DATE:02/19/20 STATUS: DIS IN [facility] [address] [place] [address] END OF REPORT
--- NOTE | 2020-02-21 10:51 | MORECARE ---
CASE MANAGEMENT DISCHARGE SUMMARY PATIENT: MARIOLA FORTE UNIT: [id number] ADM DATE: 02/16/20 AGE: 59 : 64 SEX: F ROOM/BED: D.2106 AUTHOR: HAWK,DOC PHYSICIAN: REFERRING PHYSICIAN: ANGELIQUE SLATER MD DATE OF SERVICE: 02/21/20 Discharge Plan Patient Name: MARIOLA FORTE Facility: [facility]:[place] : 1960 Planned Disposition: Home with Home Health Anticipated Discharge Date: Discharge Date: 02/19/2020 Expected LOS: 0 Initial Reviewer: [email or web address] Initial Review Date: 02/16/2020 Generated: 02/21/20 11:51 am Comments DCP- Discharge Planning Updated by [email or web address]: Raquel Carrillo on 02/21/20 9:[address] I spoke with APS, Mr. Menchaca, and informed him of patient's discharge on Friday. DCP- Discharge Planning Updated by [email or web address]: Kiera Hewitt on 02/19/20 10:[address] Spoke with Verito at [facility] to let her know that the patient was discharging home today. DCP- Discharge Planning Updated by [email or web address]: Kiera Hewitt on 02/19/20 9:[address] Spoke with patient at length about discharging home today. She stated that she has already spoken with Bill from [facility] and he was going to go come to her home today. She was also going to have him last picker her medications for her. She will need to be discharged home via EMS. I will let [facility] know that she is discharging today. Patient stated that she felt safe going home today and denies any needs. I told her that some pharmacies will deliver like [facility], she said she would look into that. will let [facility] know of discharge DCP- Discharge Planning Updated by [id number]: Aniya Latham on 02/18/20 5:[address] Patient Name: MARIOLA FORTE Admission Status: ER Accout number: [id number] Admission Date: 02-16-2020 : 1960 Admission Diagnosis:NAUSEA WITH VOMITING, UNSPECIFIED Attending: ANGELIQUE SLATER Current LOS: 2 Anticipated DC Date: Planned Disposition: Primary Insurance: [employer] CHOICE PPO MCR ADVANT Discharge Planning Comments: CM spoke with patient to complete initial dc planning assessment. CM educated patient on the CM role and verbal consent given by patient to complete assessment. Patient lives at home with her brother and his friend where she is total care. At discharge plans to return home with home health care. CM discussed availability of home health, rehab services, and medical equipment. Patient states that she has contacted Francisco Javier Puente [phone] with [facility]. Patient states that her brother has Asperger's and doesn't believe that she needs help therefore he has stopped helping her at all. Patient states that he does prepare her meals. Patient states that she wears adult diapers but he has doesn't want to change her. Patient states that she can't move her legs at all. Patient states that she will try to get someone to transport her home but her last admission she had to have ambulance to take her home. CM discussed custodial facility for her care. Patient stated that she was at [facility] and doesn't want to go back. CM called Francisco Javier Puente and found out that he is with [facility] [phone]. [facility] is pending her admit on Friday JULIETA signed for [facility] and declination signed for custodial care. Patient is wanting to stay in hospital until Friday. Patient states she is afraid to go home prior to Friday since HH will not be out there. Patient states that she has meds to last picker at her pharmacy but has no transportation to pick them up. CM explained that it was up to physician to make the call as to when she can be discharged. D/C IMM signed and copy left with patient. If patient isn't being cared for at home and is total care then CM doesn't know if HH is enough for safe discharge. Patient has declined SNF placement and signed declination. CM will continue to follow and will assist as needed with dc plans/needs. Fertilizer Loader: Aniya Latham DCPIA - Discharge Planning Initial Assessment Updated by [id number]: Aniya Latham on 02/18/20 6:19 pm * Is the patient Alert and Oriented? Yes * How many steps to enter\exit or inside your home? ramp * PCP NO PCP - goes to [facility] * Pharmacy [facility] * Preadmission Environment Home with Family * ADLs Total Dependent * Equipment Wheelchair * List name and contact numbers for known caregivers / representatives who currently or will assist patient after discharge: ANTHONY EISENBERG - [phone] * Verbal permission to speak to the caregivers and representatives has been obtained from the patient. Yes * Community resources currently utilized None * Additional services required to return to the preadmission environment? No * Can the patient safely return to the preadmission environment? Yes * Has this patient been hospitalized within the prior 30 days at any hospital? No External Providers External Provider: [facility] Next Contact Date: Service Request Date: Service Type: Resolution: Reviewer: Comments: Coverage Notice Reviewer: [email or web address] Ling Latham Notice Issued Date-Time: 02/18/2020 16:00 Notice Type: IM Discharge Notice Notice Delivered To: Patient Relationship to Patient: Self Food General Manager Name: Delivery Method: HAND - Hand Delivered Sammie Days: Prior Verbal Notification: Recipient Understood Notice: Yes Recipient Signature: Yes Med Rec Note Co-signed by Attending: Coverage Notice Comment: Last DP export: 02/21/20 9:12 a Patient Name: MARIOLA FORTE Page 63237 at 1051 All edits/amendments must be made on the electronic document DICTATION DATE: 02/21/20 1051 FIRE CAPTAIN MARINE: GARCIA 02/21/20 1051 RPT#: [id number] DC DATE:02/19/20 STATUS: DIS IN [facility] [address] [place] [address] END OF REPORT
== END 2020-02-19 13:24 | disposition home health service (06) | DRG 690 ==
LOC: D.ER 17:10 → D.M2 19:20
PROVIDERS: Family Medicine; ADMIT Internal Medicine Nephrology; ATTEND Internal Medicine Nephrology
DX: N39.0 Urinary tract infection, site not specified (principal); N17.9 Acute kidney failure, unspecified; T83.83XA Hemorrhage due to genitourinary prosthetic devices, implants and grafts, initial encounter; Y84.9 Medical procedure, unspecified as the cause of abnormal reaction of the patient, or of later complication, without mention of misadventure at the time of the procedure; N13.30 Unspecified hydronephrosis; E87.6 Hypokalemia; E03.9 Hypothyroidism, unspecified; G35 Multiple sclerosis

== ENCOUNTER 2020-02-21 09:07 | Inpatient (IN) | payer MEDICARE ==
[~2020-02-21] VITALS: Ht 157.5 cm; Wt 55.5 kg
[2020-02-21 10:02] LABS: BASOPHILS 0.1 % (0-2); EOSINOPHILS 6.3 % (0-7); HEMOGLOBIN 12.6 g/dL (12-16); IMMATURE GRANULOCYTES 0.4 % (0-5); LYMPHOCYTES 15.4 % (15-50); MCH 27.9 pg (26.0-34.0); MCHC 30.7 g/dL (31.0-37.0); MCV 90.9 fL (80.0-100.0); MEAN PLATELET VOLUME 8.7 fL (7.4-10.4); NEUTROPHILS 68.8 % (40-80); RBC 4.51 10x6/uL (4.00-5.40); RDW 14.1 % (11.5-14.5); WBC 7.7 10x3/uL (4.8-10.8)
[2020-02-21 10:13] LABS: PLATELET COUNT 485 10x3/uL (130-400)
[2020-02-21 10:15] VITALS: BP 138/82
[2020-02-21 10:18] LABS: APTT 36.7 SECONDS (22.8-39.4); INR 1.03 (0.85-1.17); PROTIME 13.4 SECONDS (11.6-15.0)
[2020-02-21 10:26] LABS: ALKALINE PHOSPHATASE 114 U/L (30-120); ALT (SGPT) 19 U/L (10-68); BILIRUBIN - TOTAL 0.29 mg/dL (0.2-1.3); CALC OSMOLALITY 284 mosm/kg (275-300); CALCIUM 8.9 mg/dL (8.5-10.1); CARBON DIOXIDE 29.5 mmol/L (21.0-32.0); CHLORIDE - SERUM 105 mmol/L (98-107); CKMB 2.3 U/L (0.0-3.6); CREATINE KINASE 110 UL (21-215); CREATININE - SERUM 0.7 mg/dL (0.6-1.3); GLUCOSE 99 mg/dL (74-106); PROTEIN - SERUM 6.6 g/dL (6.4-8.2); SODIUM 144 mmol/L (136-145); UREA NITROGEN 7 mg/dL (7-18); eGFR NON AFRICAN AMERICAN > 90 mL/min (90-120)
[2020-02-21 10:27] LABS: POTASSIUM - SERUM 2.8 mmol/L (3.5-5.1); TROPONIN-I < 0.017 ng/mL (0.000-0.060)
[2020-02-21 10:49] LABS: BILIRUBIN NEGATIVE (NEGATIVE); GLUCOSE NEGATIVE (NEGATIVE); KETONE NEGATIVE (NEGATIVE); NITRITE NEGATIVE (NEGATIVE); SPECIFIC GRAVITY 1.015 (1.005-1.020); UROBILINOGEN NORMAL (NORMAL); WHITE CELLS - URINE 25-50 /hpf (NEGATIVE)
[2020-02-21 10:50] LABS: BACTERIA MODERATE /hpf (NEGATIVE); EPITHELIAL CELLS NSEEN /hpf (0-5)
[2020-02-21 10:51] LABS: CALCIUM OXALATE CRYSTALS 0-5 /hpf (NONE SEEN)
[2020-02-21 11:15] VITALS: BP 105/71
--- NOTE | 2020-02-21 13:11 | NUR ---
CHANGED PT, PLACED CLEAN LINEAN AND GOWN ON PATIENT, CALL LIGHT WITHIN REACH.
[2020-02-21 13:17] VITALS: BP 97/79
--- NOTE | 2020-02-21 13:45 | NUR ---
RECEIVD PT FROM ER, PT HAS CATHETER INTACT, IV IN LT HAND POSITIONAL, PT HAS IV FLUIDS RUNING FREE FLOW AT THE MOMENT, NO NEEDS VOICED, CONTINUE WITH PLAN OF CARE
[2020-02-21 16:36] VITALS: BP 168/91
--- NOTE | 2020-02-21 16:53 | NUR ---
I have reviewed this patient and I concur with the Shift Assessment completed by the Licensed Practical Nurse today this shift.
[2020-02-21 20:34] VITALS: BP 166/86
[2020-02-22 00:45] VITALS: BP 128/84
[2020-02-22] MEDS ORDERED: NORVASC5 MG PO (04:39)
[2020-02-22] MEDS ORDERED: AUBAGIO14 MG PO (04:39)
[2020-02-22 05:34] LABS: BASOPHILS 0.1 % (0-2); EOSINOPHILS 5.4 % (0-7); HEMATOCRIT 38.9 % (36.0-48.0); HEMOGLOBIN 11.8 g/dL (12-16); IMMATURE GRANULOCYTES 0.3 % (0-5); LYMPHOCYTES 13.2 % (15-50); MCH 27.8 pg (26.0-34.0); MCHC 30.3 g/dL (31.0-37.0); MCV 91.5 fL (80.0-100.0); MEAN PLATELET VOLUME 9.1 fL (7.4-10.4); MONOCYTES 8.4 % (2-11); NEUTROPHILS 72.6 % (40-80); PLATELET COUNT 525 10x3/uL (130-400); RBC 4.25 10x6/uL (4.00-5.40); RDW 14.4 % (11.5-14.5)
[2020-02-22 05:49] LABS: WBC 11.4 10x3/uL (4.8-10.8)
[2020-02-22 05:52] LABS: ALKALINE PHOSPHATASE 104 U/L (30-120); ALT (SGPT) 22 U/L (10-68); CALCIUM 8.5 mg/dL (8.5-10.1); CARBON DIOXIDE 26.4 mmol/L (21.0-32.0); CHLORIDE - SERUM 106 mmol/L (98-107); CREATININE - SERUM 0.7 mg/dL (0.6-1.3); GLUCOSE 91 mg/dL (74-106); MAGNESIUM - SERUM 1.5 mg/dL (1.8-2.4); PROTEIN - SERUM 6.6 g/dL (6.4-8.2); SODIUM 143 mmol/L (136-145); eGFR NON AFRICAN AMERICAN > 90 mL/min (90-120)
[2020-02-22 05:57] VITALS: BP 136/64
[2020-02-22 06:36] LABS: CALC OSMOLALITY 281 mosm/kg (275-300); UREA NITROGEN 4 mg/dL (7-18)
[2020-02-22 06:37] LABS: POTASSIUM - SERUM 3.3 mmol/L (3.5-5.1)
--- NOTE | 2020-02-22 08:19 | NUR ---
PT K+ AND MAG WERE BOTH LOW THIS MORNING. ADMINISTERED REPLACEMENT PER PROTOCOL. CONTINUE WITH PLAN OF CARE
[2020-02-22 09:18] VITALS: BP 104/75
[2020-02-22 09:48] VITALS: Ht 157.5 cm; Wt 55.5 kg
--- NOTE | 2020-02-22 10:33 | NUR ---
I have reviewed this patient and I concur with the Shift Assessment completed by the Licensed Practical Nurse today this shift.
[2020-02-22 13:21] VITALS: BP 150/68
--- NOTE | 2020-02-22 15:44 | NUR ---
OT NOTE: PT REQUIRED MAX A WITH BED MOB TASKS. PT REQUIRED MAX A WITH UB HYGIENE TASKS. 1124 THANK YOU, POLI YORK
[2020-02-22 16:44] VITALS: BP 166/85
[2020-02-22 20:54] VITALS: BP 161/93
--- NOTE | 2020-02-22 22:31 | MORECARE ---
CASE MANAGEMENT DISCHARGE SUMMARY PATIENT: MARIOLA FORTE UNIT: [id number] ADM DATE: 02/21/20 AGE: 59 : 64 SEX: F ROOM/BED: D.2219 AUTHOR: NIGHAT ARECHIGA PHYSICIAN: REFERRING PHYSICIAN: YAS JAMA MD DATE OF SERVICE: 02/22/20 Discharge Plan Patient Name: MARIOLA FORTE [facility] [facility] 1960 Planned Disposition: Group Home Facility Anticipated Discharge Date: Discharge Date: Expected LOS: 0 Initial Reviewer: [email or web address] Initial Review Date: 02/22/2020 Generated: 02/22/20 11:30 pm Patient Name: MARIOLA FORTE Page 34863 at 2231 All edits/amendments must be made on the electronic document DICTATION DATE: 02/22/202229 BOARDER MACHINE: GARCIA 02/22/202229 RPT#: [id number] DC DATE: STATUS: ADM IN [facility] [address] [place] [address] END OF REPORT
--- NOTE | 2020-02-22 22:37 | MORECARE ---
CASE MANAGEMENT DISCHARGE SUMMARY PATIENT: MARIOLA FORTE UNIT: [id number] ADM DATE: 02/21/20 AGE: 59 : 64 SEX: F ROOM/BED: D.2219 AUTHOR: NIGHAT ARECHIGA PHYSICIAN: REFERRING PHYSICIAN: YAS JAMA MD DATE OF SERVICE: 02/22/20 Discharge Plan Patient Name: MARIOLA FORTE [facility] [facility] 1960 Planned Disposition: [facility] Facility Anticipated Discharge Date: Discharge Date: Expected LOS: 0 Initial Reviewer: [email or web address] Initial Review Date: 02/22/2020 Generated: 02/22/20 11:36 pm DCPIA - Discharge Planning Initial Assessment Updated by [email or web address]: Aniya Latham on 02/22/20 10:35 pm * Is the patient Alert and Oriented? Yes * PCP NO PCP * Pharmacy [facility] * Preadmission Environment Home with Family * ADLs Total Dependent * Equipment Wheelchair * List name and contact numbers for known caregivers / representatives who currently or will assist patient after discharge: ANTHONY ZARAGOZA [facility] [phone] * Verbal permission to speak to the caregivers and representatives has been obtained from the patient. N/A * Community resources currently utilized Home Health * Please name any agencies selected above. [facility] - WAS SET UP ? READMIT BEFORE THEY ADMITTED PATIENT * Additional services required to return to the preadmission environment? Yes * Can the patient safely return to the preadmission environment? No * Has this patient been hospitalized within the prior 30 days at any hospital? Yes Last DP export: 02/22/20 9:30 p Patient Name: MARIOLA FORTE Page 99707 at 2237 All edits/amendments must be made on the electronic document DICTATION DATE: 02/22/202235 SHINGLER: GARCIA 02/22/202235 RPT#: [id number] DC DATE: STATUS: ADM IN [facility] [address] [place] [address] END OF REPORT
--- NOTE | 2020-02-22 23:07 | MORECARE ---
CASE MANAGEMENT DISCHARGE SUMMARY PATIENT: MARIOLA FORTE UNIT: [id number] ADM DATE: 02/21/20 AGE: 59 : 64 SEX: F ROOM/BED: D.2219 AUTHOR: HAWK,DOC PHYSICIAN: REFERRING PHYSICIAN: YAS JAMA MD DATE OF SERVICE: 02/22/20 Discharge Plan Patient Name: MARIOLA FORTE Facility: [facility]:[place] : 1960 Planned Disposition: Penitentiary Facility Anticipated Discharge Date: Discharge Date: Expected LOS: 0 Initial Reviewer: [email or web address] Initial Review Date: 02/22/2020 Generated: 02/23/20 12:07 am Comments DCP- Discharge Planning Updated by [email or web address]: Aniya Latham on 02/22/20 10:[address] Patient Name: MARIOLA FORTE Admission Status: ER Accout number: [id number] Admission Date: 02-21-2020 : 1960 Admission Diagnosis: Attending: YAS JAMA Current LOS: 1 Anticipated DC Date: Planned Disposition: Penitentiary Facility Primary Insurance: [employer] CHOICE PPO MCR ADVANT Discharge Planning Comments: LATE ENTRY - 02/21/20 CM spoke with patient in ER and she states that she can't go back home with her brother because he will not help her. CM spoke to her about SNF placement and she stated that she would go back to [facility]. JULIETA signed CM contacted Tres with [facility] and faxed records. Tres called back and stated that he is trying to check out his bed situation and would call CM back. 02/22/20 Tres called and stated that he could take the patient today if she would agree to going to a certain bed status post quarantine. CM brought phone to patient for her to speak to Tres. Patient told Tres that she had a friend from [place] coming to pick her up and that she would not be needing his facility. Patient called CM back into her room later and stated that she needed CM to find her a NH in [place]. CM explained that with CoVid 19 that they will not be accepting patients out of state. CM explained that if she is going to go to SNF facility then she needs to go some where around here and then she can work on placement in [place] if that is where she wants to go. Patient then agreed to [facility] once again. CM called Tres back and he had given away her bed. He stated that hopefully he will have a bed tomorrow. CM will continue to follow and assist as needed with discharge planning / needs. Digital Marketing Consultant: Aniya Latham DCPIA - Discharge Planning Initial Assessment Updated by [email or web address]: Aniya Latham on 02/22/20 10:35 pm * Is the patient Alert and Oriented? Yes * PCP NO PCP * Pharmacy [facility] * Preadmission Environment Home with Family * ADLs Total Dependent * Equipment Wheelchair * List name and contact numbers for known caregivers / representatives who currently or will assist patient after discharge: ANTHONY ZARAGOZA - [place] - [phone] * Verbal permission to speak to the caregivers and representatives has been obtained from the patient. N/A * Community resources currently utilized Home Health * Please name any agencies selected above. [facility] - WAS SET UP ? READMIT BEFORE THEY ADMITTED PATIENT * Additional services required to return to the preadmission environment? Yes * Can the patient safely return to the preadmission environment? No * Has this patient been hospitalized within the prior 30 days at any hospital? Yes Last DP export: 02/22/20 9:37 p Patient Name: MARIOLA FORTE Page 92602 at 2307 All edits/amendments must be made on the electronic document DICTATION DATE: 02/22/202306 CHENILLE MACHINE OPERATOR: GARCIA 02/22/202306 RPT#: [id number] DC DATE: STATUS: ADM IN [facility] [address] [facility] [place] [address] END OF REPORT
[2020-02-23 00:02] VITALS: BP 112/84
[2020-02-23 04:45] VITALS: BP 149/86
[2020-02-23 05:06] LABS: BASOPHILS 0.2 % (0-2); HEMATOCRIT 37.1 % (36.0-48.0); HEMOGLOBIN 11.4 g/dL (12-16); IMMATURE GRANULOCYTES 0.4 % (0-5); MCH 27.8 pg (26.0-34.0); MCHC 30.7 g/dL (31.0-37.0); MCV 90.5 fL (80.0-100.0); MEAN PLATELET VOLUME 9.5 fL (7.4-10.4); MONOCYTES 8.3 % (2-11); NEUTROPHILS 76.1 % (40-80); RDW 14.3 % (11.5-14.5); WBC 12.3 10x3/uL (4.8-10.8)
[2020-02-23 05:23] LABS: PLATELET COUNT 390 10x3/uL (130-400)
[2020-02-23 05:24] LABS: ALBUMIN 3.1 g/dL (3.4-5.0); ALKALINE PHOSPHATASE 106 U/L (30-120); ALT (SGPT) 23 U/L (10-68); CALC OSMOLALITY 278 mosm/kg (275-300); CALCIUM 8.6 mg/dL (8.5-10.1); CARBON DIOXIDE 25.3 mmol/L (21.0-32.0); CHLORIDE - SERUM 106 mmol/L (98-107); CREATININE - SERUM 0.6 mg/dL (0.6-1.3); GLUCOSE 82 mg/dL (74-106); MAGNESIUM - SERUM 1.6 mg/dL (1.8-2.4); POTASSIUM - SERUM 3.7 mmol/L (3.5-5.1); PROTEIN - SERUM 5.9 g/dL (6.4-8.2); SODIUM 142 mmol/L (136-145); UREA NITROGEN 5 mg/dL (7-18); eGFR NON AFRICAN AMERICAN > 90 mL/min (90-120)
[2020-02-23 08:54] VITALS: BP 189/96
--- NOTE | 2020-02-23 09:35 | NUR ---
ALERT AND ORIENTED. LUNGS CLEAR BILATERALLY. HEART SOUNDS S1 AND S2 HEARD IN ALL OMER. BOWEL SOUNDS ACTIVE X 4. BUTTOCKS RED BUT BLANCHABLE. SKIN OTHERWISE INTACT WITHOUT REDNESS. IV TO LFA PATENT WITHOUT REDNESS. DENIES NEEDS. BED LOW. CALL GUARDADO AND PERSONAL ITEMS IN REACH. WILL CONTINUE TO MONITOR.
[2020-02-23 13:48] VITALS: BP 147/89
--- NOTE | 2020-02-23 14:06 | NUR ---
OT NOTE: PROM TO B LES; R LE WITH INCREASED TONE TODAY VS YESTERDAY; BED MOB WITH MAX ASSIST; SUPINE TO SIT WITH MAX ASSIST; REQUIRES COMPLETE ASSIST WITH LE MANIPULATION. SIMPLE GROOMING AND FEEDING WITH SET UP; REMAINS WITH DECREASED CORE STRENGHT. DISCUSSED PROBABLY NEED FOR ASSITED LIVING YOSI SANCHEZ, OTR/L [phone]
--- NOTE | 2020-02-23 14:35 | NUR ---
OT NOTE: PT COMPLETED BED MOB WITH MOD/MAX A. PT COMPLETED EOB SITTING WITH MOD A. PT REQUIRED TOTAL A WITH LB HYGIENE . PT COMPLETED UB HYGIENE WITH MIN A. [id number] THANK YOU,POLI YORK
--- NOTE | 2020-02-23 14:55 | MORECARE ---
CASE MANAGEMENT DISCHARGE SUMMARY PATIENT: MARIOLA FORTE UNIT: [id number] ADM DATE: 02/21/20 AGE: 59 : 64 SEX: F ROOM/BED: D.2219 AUTHOR: HAWK,DOC PHYSICIAN: REFERRING PHYSICIAN: YAS JAMA MD DATE OF SERVICE: 02/23/20 Discharge Plan Patient Name: MARIOLA FORTE Facility: [facility]:[place] : 1960 Planned Disposition: Fpc Facility Anticipated Discharge Date: Discharge Date: Expected LOS: 0 Initial Reviewer: [email or web address] Initial Review Date: 02/22/2020 Generated: 02/23/20 3:54 pm Comments DCP- Discharge Planning Updated by [email or web address]: Kiera Hewitt on 02/23/20 1:[address] CALLED DEBBIE AT [facility] AND LEFT MESSAGE FOR HIM TO CALL ME BACK DCP- Discharge Planning Updated by [email or web address]: Aniya Latham on 02/22/20 10:[address] Patient Name: MARIOLA FORTE Admission Status: ER Accout number: [id number] Admission Date: 02-21-2020 : 1960 Admission Diagnosis: Attending: YAS JAMA Current LOS: 1 Anticipated DC Date: Planned Disposition: Fpc Facility Primary Insurance: [employer] CHOICE PPO MCR ADVANT Discharge Planning Comments: LATE ENTRY - 02/21/20 CM spoke with patient in ER and she states that she can't go back home with her brother because he will not help her. CM spoke to her about SNF placement and she stated that she would go back to [facility]. JULIETA signed CM contacted Debbie with [facility] and faxed records. Debbie called back and stated that he is trying to check out his bed situation and would call CM back. 02/22/20 Debbie called and stated that he could take the patient today if she would agree to going to a certain bed status post quarantine. CM brought phone to patient for her to speak to Debbie. Patient told Debbie that she had a friend from [place] coming to pick her up and that she would not be needing his facility. Patient called CM back into her room later and stated that she needed CM to find her a NH in [place]. CM explained that with CoVid 19 that they will not be accepting patients out of state. CM explained that if she is going to go to SNF facility then she needs to go some where around here and then she can work on placement in [place] if that is where she wants to go. Patient then agreed to [facility] once again. CM called Debbie back and he had given away her bed. He stated that hopefully he will have a bed tomorrow. CM will continue to follow and assist as needed with discharge planning / needs. Resource Protection Specialist: Aniya Latham DCPIA - Discharge Planning Initial Assessment Updated by [email or web address]: Aniya Latham on 02/22/20 10:35 pm * Is the patient Alert and Oriented? Yes * PCP NO PCP * Pharmacy [facility] * Preadmission Environment Home with Family * ADLs Total Dependent * Equipment Wheelchair * List name and contact numbers for known caregivers / representatives who currently or will assist patient after discharge: ANTHONY ZARAGOZA - BROTHER - [phone] * Verbal permission to speak to the caregivers and representatives has been obtained from the patient. N/A * Community resources currently utilized Home Health * Please name any agencies selected above. [facility] - WAS SET UP ? READMIT BEFORE THEY ADMITTED PATIENT * Additional services required to return to the preadmission environment? Yes * Can the patient safely return to the preadmission environment? No * Has this patient been hospitalized within the prior 30 days at any hospital? Yes Last DP export: 02/22/20 10:07 p Patient Name: MARIOLA FORTE Page [id number] at 1455 All edits/amendments must be made on the electronic document DICTATION DATE: 02/23/20 1454 PRODUCT DESIGN SPECIALIST: GARCIA 02/23/201453 RPT#: [id number] PA DATE: STATUS: ADM IN [facility] [address] [place] [address] END OF REPORT
--- NOTE | 2020-02-23 15:34 | NUR ---
Pt's bottom is red but blanchable - no open areas noted. Groin/perineal area excoriation noted due to incontinence. Calmoseptine cream is being applied twice daily and prn with incontinent episodes. Pt is being turned/repositioned q 2 hours. Wound care will monitor.
[2020-02-23 17:28] VITALS: BP 142/75
[2020-02-23 20:00] VITALS: BP 150/94
--- NOTE | 2020-02-24 03:28 | NUR ---
PATIENT IN BED RESTING WITH NO NEEDS AT THIS TIME NO ACUTE CHANGES. CALL LIGHT AND WATER IN REACH. F/C IN PLACE AND PATEN WITH CLEAR YELLOW URINE TO BAG. IV TO LEFT FA. CHECKED OFTEN FOR NEEDS AND SAFETY TRUND FOR COMFORT.
[2020-02-24 04:00] VITALS: BP 149/90
[2020-02-24 04:36] LABS: BASOPHILS 0.2 % (0-2); HEMATOCRIT 37.1 % (36.0-48.0); HEMOGLOBIN 11.3 g/dL (12-16); IMMATURE GRANULOCYTES 0.6 % (0-5); LYMPHOCYTES 12.6 % (15-50); MCH 27.6 pg (26.0-34.0); MCHC 30.5 g/dL (31.0-37.0); MCV 90.7 fL (80.0-100.0); MEAN PLATELET VOLUME 8.9 fL (7.4-10.4); MONOCYTES 8.1 % (2-11); NEUTROPHILS 74.5 % (40-80); PLATELET COUNT 445 10x3/uL (130-400); RBC 4.09 10x6/uL (4.00-5.40); RDW 14.5 % (11.5-14.5)
[2020-02-24 05:18] LABS: ALBUMIN 2.8 g/dL (3.4-5.0); ANION GAP 11.7 mmol/L (8-16); BILIRUBIN - TOTAL 0.2 mg/dL (0.2-1.3); CALCIUM 8.9 mg/dL (8.5-10.1); CARBON DIOXIDE 26.9 mmol/L (21.0-32.0); MAGNESIUM - SERUM 1.8 mg/dL (1.8-2.4); POTASSIUM - SERUM 3.6 mmol/L (3.5-5.1); PROTEIN - SERUM 6.3 g/dL (6.4-8.2)
[2020-02-24 05:22] LABS: CREATININE - SERUM 0.9 mg/dL (0.6-1.3)
[2020-02-24 09:31] VITALS: BP 157/94
--- NOTE | 2020-02-24 10:13 | NUR ---
SHE IS WANTING TO CHANGE POSITIONS EVERY FEW MINUTES. SHE CAN MOVE SOME. THE IV IN THE LEFT ARM IS RED AND I REMOVED IT. THE CALL LIGHT IS WITHIN REACH, WELL THE PHONE.
[2020-02-24 13:29] VITALS: BP 144/81
--- NOTE | 2020-02-24 13:31 | MORECARE ---
CASE MANAGEMENT DISCHARGE SUMMARY PATIENT: MARIOLA FORTE UNIT: [id number] ADM DATE: 02/21/20 AGE: 59 : 64 SEX: F ROOM/BED: D.2219 AUTHOR: NIGHAT ARECHIGA PHYSICIAN: REFERRING PHYSICIAN: YAS JAMA MD DATE OF SERVICE: 02/24/20 Discharge Plan Patient Name: MARIOLA FORTE Facility: [facility]:[place] : 1960 Planned Disposition: Retirement Facility Anticipated Discharge Date: Discharge Date: Expected LOS: 0 Initial Reviewer: [email or web address] Initial Review Date: 02/22/2020 Generated: 02/24/20 2:30 pm Comments DCP- Discharge Planning Updated by [email or web address]: Kiera Hewitt on 02/24/20 12:[address] Spoke with patient about pick pack worker time to [facility] and IMM. She signed the IMM, but stated that she was not going to [facility] she would have Jo come pick her up and take care of her. I called Jo to make sure she knew what she was agreeing to. Jo said that she can take care of her a couple of days. I explained to her that her last admission she stated that her brother would not take care of her or help her & if she came and picked her up that she would be assuming total care of her. Jo asked if I would be helping her find a place to live in [place]. I explained to her that she is accepted at [facility] and I would not be finding her a place in [place]. She said that she would call Mariola and speak with her about her. I also called Debbie at [facility] to let him know the above, and he was going to call her and speak with her. DCP- Discharge Planning Updated by [email or web address]: Kiera Hewitt on 02/23/20 1:[address] CALLED DEBBIE AT [facility] AND LEFT MESSAGE FOR HIM TO CALL ME BACK DCP- Discharge Planning Updated by [email or web address]: Aniya Latham on 02/22/20 10:[address] Patient Name: MARIOLA FORTE Admission Status: ER Accout number: [id number] Admission Date: 02-21-2020 : 1960 Admission Diagnosis: Attending: YAS JAMA Current LOS: 1 Anticipated DC Date: Planned Disposition: Retirement Facility Primary Insurance: HUMANA CHOICE PPO [facility] Discharge Planning Comments: LATE ENTRY - 02/21/20 CM spoke with patient in ER and she states that she can't go back home with her brother because he will not help her. CM spoke to her about SNF placement and she stated that she would go back to [facility]. JULIETA signed CM contacted Debbie with [facility] and faxed records. Debbie called back and stated that he is trying to check out his bed situation and would call CM back. 02/22/20 Debbie called and stated that he could take the patient today if she would agree to going to a certain bed status post quarantine. CM brought phone to patient for her to speak to Debbie. Patient told Debbie that she had a friend from [place] coming to pick her up and that she would not be needing his facility. Patient called CM back into her room later and stated that she needed CM to find her a NH in [place]. CM explained that with CoVid 19 that they will not be accepting patients out of state. CM explained that if she is going to go to SNF facility then she needs to go some where around here and then she can work on placement in [place] if that is where she wants to go. Patient then agreed to [facility] once again. CM called Debbie back and he had given away her bed. He stated that hopefully he will have a bed tomorrow. CM will continue to follow and assist as needed with discharge planning / needs. Technical Translator: Aniya Latham [facility] Initial Assessment Updated by [email or web address]: Aniya Latham on 02/22/20 10:35 pm * Is the patient Alert and Oriented? Yes * PCP NO PCP * Pharmacy [facility] * Preadmission Environment Home with Family * ADLs Total Dependent * Equipment Wheelchair * List name and contact numbers for known caregivers / representatives who currently or will assist patient after discharge: ANTHONY ZARAGOZA - BROTHER - [phone] * Verbal permission to speak to the caregivers and representatives has been obtained from the patient. N/A * Community resources currently utilized Home Health * Please name any agencies selected above. [facility] - WAS SET UP ? READMIT BEFORE THEY ADMITTED PATIENT * Additional services required to return to the preadmission environment? Yes * Can the patient safely return to the preadmission environment? No * Has this patient been hospitalized within the prior 30 days at any hospital? Yes Last DP export: 02/23/20 1:55 p Patient Name: MARIOLA FORTE Page 96158 at 1331 All edits/amendments must be made on the electronic document DICTATION DATE: 02/24/201329 NEGATIVE NOTCHER: GARCIA 02/24/20 1330 RPT#: [id number] DC DATE: STATUS: ADM IN [facility] [address] [place] [address] END OF REPORT
--- NOTE | 2020-02-24 13:48 | MORECARE ---
CASE MANAGEMENT DISCHARGE SUMMARY PATIENT: MARIOLA FORTE UNIT: [id number] ADM DATE: 02/21/20 AGE: 59 : 64 SEX: F ROOM/BED: D.2219 AUTHOR: NIGHAT ARECHIGA PHYSICIAN: REFERRING PHYSICIAN: YAS JAMA MD DATE OF SERVICE: 02/24/20 Discharge Plan Patient Name: MARIOLA FORTE Facility: [facility]:[place] : 1960 Planned Disposition: Intermediate Facility Anticipated Discharge Date: Discharge Date: Expected LOS: 0 Initial Reviewer: [email or web address] Initial Review Date: 02/22/2020 Generated: 02/24/20 2:47 pm Comments DCP- Discharge Planning Updated by [email or web address]: Kiera Hewitt on 02/24/20 12:[address] Jo ([phone]) patients friend is assuming care for patient. Jo stated that her friends from [place] will be here in a few days. I explained to Jo and the patient that I do not think this is the safest plan for her they understand. Patient also told Debbie Singh at [facility] to take her name off his list. CM will continue to follow and assist as needed. I spoke with Dr Eduardo and [facility] COBOS to let them know of the patients change of plans and no new orders were received and that stated that was her decision. DCP- Discharge Planning Updated by [id number]: Kiera Hewitt on 02/24/20 12:[address] Spoke with patient about hop picker time to [facility] and IMM. She signed the IMM, but stated that she was not going to [facility] she would have Jo come pick her up and take care of her. I called Jo to make sure she knew what she was agreeing to. Jo said that she can take care of her a couple of days. I explained to her that her last admission she stated that her brother would not take care of her or help her & if she came and picked her up that she would be assuming total care of her. Jo asked if I would be helping her find a place to live in [place]. I explained to her that she is accepted at [facility] and I would not be finding her a place in [place]. She said that she would call Mariola and speak with her about her. I also called Debbie at [facility] to let him know the above, and he was going to call her and speak with her. DCP- Discharge Planning Updated by [id number]: Kiera Kash on 02/23/20 1:[address] CALLED DEBBIE AT [facility] AND LEFT MESSAGE FOR HIM TO CALL ME BACK DCP- Discharge Planning Updated by [id number]: Aniya Latham on 02/22/20 10:[address] Patient Name: MARIOLA FORTE Admission Status: ER Accout number: [id number] Admission Date: 02-21-2020 : 1960 Admission Diagnosis: Attending: YAS JAMA Current LOS: 1 Anticipated DC Date: Planned Disposition: Intermediate Facility Primary Insurance: [employer]NA CHOICE PPO MCR ADVANT Discharge Planning Comments: LATE ENTRY - 02/21/20 CM spoke with patient in ER and she states that she can't go back home with her brother because he will not help her. CM spoke to her about SNF placement and she stated that she would go back to [facility]. JULIETA signed CM contacted Debbie with [facility] and faxed records. Debbie called back and stated that he is trying to check out his bed situation and would call JUWAN back. 02/22/20 Debbie called and stated that he could take the patient today if she would agree to going to a certain bed status post quarantine. CM brought phone to patient for her to speak to Debbie. Patient told Debbie that she had a friend from [place] coming to pick her up and that she would not be needing his facility. Patient called JUWAN back into her room later and stated that she needed CM to find her a NH in [place]. CM explained that with CoVid 19 that they will not be accepting patients out of state. CM explained that if she is going to go to SNF facility then she needs to go some where around here and then she can work on placement in [place] if that is where she wants to go. Patient then agreed to [facility] once again. CM called Debbie back and he had given away her bed. He stated that hopefully he will have a bed tomorrow. CM will continue to follow and assist as needed with discharge planning / needs. Bitumastic Applier: Aniya Latham DCPIA - Discharge Planning Initial Assessment Updated by [email or web address]: Aniya Latham on 02/22/20 10:35 pm * Is the patient Alert and Oriented? Yes * PCP NO PCP * Pharmacy [facility] * Preadmission Environment Home with Family * ADLs Total Dependent * Equipment Wheelchair * List name and contact numbers for known caregivers / representatives who currently or will assist patient after discharge: ANTHONY SOLANOER - [phone] * Verbal permission to speak to the caregivers and representatives has been obtained from the patient. N/A * Community resources currently utilized Home Health * Please name any agencies selected above. [facility] - WAS SET UP ? READMIT BEFORE THEY ADMITTED PATIENT * Additional services required to return to the preadmission environment? Yes * Can the patient safely return to the preadmission environment? No * Has this patient been hospitalized within the prior 30 days at any hospital? Yes Coverage Notice Reviewer: [email or web address] Ling Hewitt Notice Issued Date-Time: 02/24/2020 13:45 Notice Type: IM Discharge Notice Notice Delivered To: Patient Relationship to Patient: Gear Room Keeper Name: Delivery Method: HAND - Hand Delivered Sammie Days: Prior Verbal Notification: Recipient Understood Notice: Yes Recipient Signature: Yes Med Rec Note Co-signed by Attending: Coverage Notice Comment: Last DP export: 02/24/20 12:31 p Patient Name: MARIOLA FORTE Page 21708 at 1348 All edits/amendments must be made on the electronic document DICTATION DATE: 02/24/20 1347 COATING MACHINE HELPER: GARCIA 02/24/20 1347 RPT#: [id number] DC DATE: STATUS: ADM IN [facility] [address] [place] [address] END OF REPORT
--- NOTE | 2020-02-24 14:31 | MORECARE ---
CASE MANAGEMENT DISCHARGE SUMMARY PATIENT: MARIOLA FORTE UNIT: [id number] ADM DATE: 02/21/20 AGE: 59 : 64 SEX: F ROOM/BED: D.2219 AUTHOR: NIGHAT ARECHIGA PHYSICIAN: REFERRING PHYSICIAN: YAS JAMA MD DATE OF SERVICE: 02/24/20 Discharge Plan Patient Name: MARIOLA FORTE Facility: [facility]:[place] : 1960 Planned Disposition: Long Term Facility Anticipated Discharge Date: Discharge Date: Expected LOS: 0 Initial Reviewer: [email or web address] Initial Review Date: 02/22/2020 Generated: 02/24/20 3:31 pm Comments DCP- Discharge Planning Updated by [email or web address]: Kiera Hewitt on 02/24/20 12:[address] Jo ([phone]) patients friend is assuming care for patient. Jo stated that her friends from [place] will be here in a few days. I explained to Jo and the patient that I do not think this is the safest plan for her they understand. Patient also told Debbie Singh at [facility] to take her name off his list. CM will continue to follow and assist as needed. I spoke with Dr Eduardo and Marbella COBOS to let them know of the patients change of plans and no new orders were received and that stated that was her decision. DCP- Discharge Planning Updated by [id number]: Kiera Hewitt on 02/24/20 12:[address] Spoke with patient about hand picker time to [facility] and IMM. She signed the IMM, but stated that she was not going to [facility] she would have Jo come pick her up and take care of her. I called Jo to make sure she knew what she was agreeing to. Jo said that she can take care of her a couple of days. I explained to her that her last admission she stated that her brother would not take care of her or help her & if she came and picked her up that she would be assuming total care of her. Jo asked if I would be helping her find a place to live in [place]. I explained to her that she is accepted at [facility] and I would not be finding her a place in [place]. She said that she would call Mariola and speak with her about her. I also called Debbie at [facility] to let him know the above, and he was going to call her and speak with her. DCP- Discharge Planning Updated by [id number]: Kiera Kash on 02/23/20 1:[address] CALLED DEBBIE AT [facility] AND LEFT MESSAGE FOR HIM TO CALL ME BACK DCP- Discharge Planning Updated by [email or web address]: Aniya Latham on 02/22/20 10:[address] Patient Name: MARIOLA FORTE Admission Status: ER Accout number: [id number] Admission Date: 02-21-2020 : 1960 Admission Diagnosis: Attending: YAS JAMA Current LOS: 1 Anticipated DC Date: Planned Disposition: Long Term Facility Primary Insurance: [employer] CHO[employer] PPO MCR ADVANT Discharge Planning Comments: LATE ENTRY - 02/21/20 CM spoke with patient in ER and she states that she can't go back home with her brother because he will not help her. CM spoke to her about SNF placement and she stated that she would go back to [facility]. JULIETA signed CM contacted Debbie with [facility] and faxed records. Debbie called back and stated that he is trying to check out his bed situation and would call JUWAN back. 02/22/20 Debbie called and stated that he could take the patient today if she would agree to going to a certain bed status post quarantine. CM brought phone to patient for her to speak to Debbie. Patient told Debbie that she had a friend from [place] coming to pick her up and that she would not be needing his facility. Patient called JUWAN back into her room later and stated that she needed CM to find her a NH in [place]. CM explained that with CoVid 19 that they will not be accepting patients out of state. CM explained that if she is going to go to SNF facility then she needs to go some where around here and then she can work on placement in [place] if that is where she wants to go. Patient then agreed to [facility] once again. CM called Debbie back and he had given away her bed. He stated that hopefully he will have a bed tomorrow. CM will continue to follow and assist as needed with discharge planning / needs. Aboriginal Education Teacher: Aniya Latham DCPIA - Discharge Planning Initial Assessment Updated by [id number]: Aniya Latham on 02/22/20 10:35 pm * Is the patient Alert and Oriented? Yes * PCP NO PCP * Pharmacy [facility] * Preadmission Environment Home with Family * ADLs Total Dependent * Equipment Wheelchair * List name and contact numbers for known caregivers / representatives who currently or will assist patient after discharge: ANTHONY SOLANOER - [phone] * Verbal permission to speak to the caregivers and representatives has been obtained from the patient. N/A * Community resources currently utilized Home Health * Please name any agencies selected above. [facility] - WAS SET UP ? [facility] BEFORE THEY ADMITTED PATIENT * Additional services required to return to the preadmission environment? Yes * Can the patient safely return to the preadmission environment? No * Has this patient been hospitalized within the prior 30 days at any hospital? Yes Coverage Notice Reviewer: [id number] Ling Hewitt Notice Issued Date-Time: 02/24/2020 13:45 Notice Type: IM Discharge Notice Notice Delivered To: Patient Relationship to Patient: Camera Mechanic Name: Delivery Method: HAND - Hand Delivered Sammie Days: Prior Verbal Notification: Recipient Understood Notice: Yes Recipient Signature: Yes Med Rec Note Co-signed by Attending: Coverage Notice Comment: Last DP export: 02/24/20 12:48 p Patient Name: MARIOLA FORTE Page [id number] at 1431 All edits/amendments must be made on the electronic document DICTATION DATE: 02/24/20 1431 MASSEUR/MASSEUSE: GARCIA 02/24/20 143 RPT#: [id number] DC DATE: STATUS: ADM IN [facility] [address] [place] [address] END OF REPORT
--- NOTE | 2020-02-25 08:33 | MORECARE ---
CASE MANAGEMENT DISCHARGE SUMMARY PATIENT: MARIOLA FORTE UNIT: [id number] ADM DATE: 02/21/20 AGE: 59 : 64 SEX: F ROOM/BED: D.2219 AUTHOR: NIGHAT ARECHIGA PHYSICIAN: REFERRING PHYSICIAN: YAS JAMA MD DATE OF SERVICE: 02/25/20 Discharge Plan Patient Name: MARIOLA FORTE Facility: [facility]:[place] : 1960 Planned Disposition: Fpc Facility Anticipated Discharge Date: Discharge Date: 02/24/2020 Expected LOS: 0 Initial Reviewer: [email or web address] Initial Review Date: 02/22/2020 Generated: 02/25/20 9:33 am Comments DCP- Discharge Planning Updated by [id number]: Kiera Hewitt on 02/24/20 12:[address] Jo ([phone]) patients friend is assuming care for patient. Jo stated that her friends from [place] will be here in a few days. I explained to Jo and the patient that I do not think this is the safest plan for her they understand. Patient also told Debbie Singh at [facility] to take her name off his list. CM will continue to follow and assist as needed. I spoke with Dr Eduardo and Marbella COBOS to let them know of the patients change of plans and no new orders were received and that stated that was her decision. DCP- Discharge Planning Updated by [id number]: Kiera Hewitt on 02/24/20 12:[address] Spoke with patient about case picker time to [facility] and IMM. She signed the IMM, but stated that she was not going to [facility] she would have Jo come pick her up and take care of her. I called Jo to make sure she knew what she was agreeing to. Jo said that she can take care of her a couple of days. I explained to her that her last admission she stated that her brother would not take care of her or help her & if she came and picked her up that she would be assuming total care of her. Jo asked if I would be helping her find a place to live in [place]. I explained to her that she is accepted at [facility] and I would not be finding her a place in [place]. She said that she would call Mariola and speak with her about her. I also called Debbie at [facility] to let him know the above, and he was going to call her and speak with her. DCP- Discharge Planning Updated by [email or web address]: Kiera Hewitt on 02/23/20 1:[address] CALL[address] DEBBIE AT [facility] AND LEFT MESSAGE FOR HIM TO CALL ME BACK DCP- Discharge Planning Updated by [id number]: Aniya Latham on 02/22/20 10:[address] Patient Name: MARIOLA FORTE Admission Status: ER Accout number: [id number] Admission Date: 02-21-2020 : 1960 Admission Diagnosis: Attending: YAS JAMA Current LOS: 1 Anticipated DC Date: Planned Disposition: Fpc Facility Primary Insurance: [employer] CHOICE PPO MCR ADVANT Discharge Planning Comments: LATE ENTRY - 02/21/20 CM spoke with patient in ER and she states that she can't go back home with her brother because he will not help her. CM spoke to her about SNF placement and she stated that she would go back to [facility]. JULIETA signed CM contacted Debbie with [facility] and faxed records. Debbie called back and stated that he is trying to check out his bed situation and would call JUWAN back. 02/22/20 Debbie called and stated that he could take the patient today if she would agree to going to a certain bed status post quarantine. CM brought phone to patient for her to speak to Debbie. Patient told Debbie that she had a friend from [place] coming to pick her up and that she would not be needing his facility. Patient called JUWAN back into her room later and stated that she needed CM to find her a NH in [place]. CM explained that with CoVid 19 that they will not be accepting patients out of state. CM explained that if she is going to go to SNF facility then she needs to go some where around here and then she can work on placement in [place] if that is where she wants to go. Patient then agreed to [facility] once again. CM called Debbie back and he had given away her bed. He stated that hopefully he will have a bed tomorrow. CM will continue to follow and assist as needed with discharge planning / needs. Steel Loader: Aniya Latham DCPIA - Discharge Planning Initial Assessment Updated by [email or web address]: Aniya Latham on 02/22/20 10:35 pm * Is the patient Alert and Oriented? Yes * PCP NO PCP * Pharmacy [facility] * Preadmission Environment Home with Family * ADLs Total Dependent * Equipment Wheelchair * List name and contact numbers for known caregivers / representatives who currently or will assist patient after discharge: ANTHONY EISENBERG - [phone] * Verbal permission to speak to the caregivers and representatives has been obtained from the patient. N/A * Community resources currently utilized Home Health * Please name any agencies selected above. [facility] - WAS SET UP ? [facility] BEFORE THEY ADMITTED PATIENT * Additional services required to return to the preadmission environment? Yes * Can the patient safely return to the preadmission environment? No * Has this patient been hospitalized within the prior 30 days at any hospital? Yes Coverage Notice Reviewer: [id number] Ling Hewitt Notice Issued Date-Time: 02/24/2020 13:45 Notice Type: IM Discharge Notice Notice Delivered To: Patient Relationship to Patient: Laser Machine Operator Name: Delivery Method: HAND - Hand Delivered Sammie Days: Prior Verbal Notification: Recipient Understood Notice: Yes Recipient Signature: Yes Med Rec Note Co-signed by Attending: Coverage Notice Comment: Last DP export: 02/24/20 1:31 p Patient Name: MARIOLA FORTE Page [id number] at 0833 All edits/amendments must be made on the electronic document DICTATION DATE: 02/25/20832 LOAN SERVICES PROFESSIONAL: GARCIA 02/25/20832 RPT#: [id number] DC DATE:02/24/20 STATUS: DIS IN [facility] [address] [place] [address] END OF REPORT
== END 2020-02-24 20:06 | DRG 690 ==
LOC: D.ER 09:07 → D.MS 11:29
PROVIDERS: Family Medicine; ADMIT Family Medicine; ATTEND Family Medicine
DX: N39.0 Urinary tract infection, site not specified (principal); E87.6 Hypokalemia; I10 Essential (primary) hypertension; E03.9 Hypothyroidism, unspecified; G35 Multiple sclerosis